=== PATIENT | female | born 1935 | race Two or more races ===

== ENCOUNTER 2023-11-06 18:40 | Inpatient (IN) | payer MEDICARE, OTHER ==
[~2023-11-06] VITALS: Ht 152.4 cm; Wt 59.0 kg
[2023-11-06 20:20] VITALS: BP 115/95; TEMP 97.5; O2SAT 99
[2023-11-06] MEDS ORDERED: APIX5TAB PO (21:10)
[2023-11-06] MEDS ORDERED: PHEN100C4 PO (21:10)
[2023-11-06] MEDS ORDERED: ZONI100C31 PO (21:10)
[2023-11-06] MEDS ORDERED: MAG HYDROX/AL HYDROX/SIMETH 30 ML UDC PO PRN (22:00)
[2023-11-06] MEDS ORDERED: Z GUARD REMEDY 4 OZ OINT TP PRN (22:00)
[2023-11-06] MEDS ORDERED: ONDANSETRON HCL/PF 4 MG/2 ML VIAL IVP PRN (22:00)
[2023-11-06] MEDS ORDERED: ACETAMINOPHEN 325 MG TABLET PO PRN (22:00)
[2023-11-06] MEDS ORDERED: MAGNESIUM HYDROXIDE 30 ML UDC PO PRN (22:00)
[2023-11-06] MEDS: IV NS 0.9% 1,000 ML IV PRN (22:08)
[2023-11-07] VITALS (7 sets, daily range): BP systolic 94–127; BP diastolic 70–92; TEMP 97.5–98.8; O2SAT 96–98
[2023-11-07 07:00] LABS: BASOPHILS % (AUTO) 0.7 % (0.0-2.0); EOSINOPHILS # (AUTO) 0.1 K/uL (0.0-0.7); EOSINOPHILS % (AUTO) 2.9 % (0.0-6.0); HEMATOCRIT 43 % (33-45); HEMOGLOBIN 14.2 g/dL (11.5-14.8); LYMPHOCYTES # (AUTO) 1.5 K/uL (0.8-4.8); LYMPHOCYTES % (AUTO) 34.4 % (20.0-44.0); MEAN CORPUSCULAR HEMOGLOBIN 31 PG (26.0-33.0); MEAN CORPUSCULAR HGB CONC 33 g/dl (31.0-36.0); MEAN CORPUSCULAR VOLUME 93 fL (82-100); MONOCYTES # (AUTO) 0.4 K/uL (0.1-1.30); MONOCYTES % (AUTO) 8.5 % (2.0-12.0); NEUTROPHILS # (AUTO) 2.4 K/uL (1.8-8.9); NEUTROPHILS % (AUTO) 53.5 % (43.0-81.0); PLATELET COUNT (AUTO) 196 K/uL (150-450); RED CELL DISTRIBUTION WIDTH 13.1 % (11.5-15.0); WHITE BLOOD COUNT (AUTO) 4.5 K/uL (4.3-11.0)
[2023-11-07 07:02] LABS: CALCIUM, SERUM 7.9 mg/dL (8.5-10.1); CREATININE 0.6 mg/dL (0.6-1.3); PHOSPHORUS 2.3 mg/dL (2.5-4.9); POTASSIUM 3.9 mmol/L (3.5-5.1)
[2023-11-07] MEDS ORDERED: DILTIAZEM HCL 25 MG IV IV PRN (07:30)
[2023-11-07 07:49] LABS: THYROID STIMULATING HORMONE 3.599 uIU/mL (0.358-3.74)
[2023-11-07] MEDS: PHENYTOIN EXTENDED RELEASE 100 MG CAPSULE PO SCH (08:35)
[2023-11-07] MEDS: ZONISAMIDE 100 MG CAPSULE PO SCH (08:35)
[2023-11-07] MEDS: APIXABAN 5 MG TABLET PO SCH (08:36)
[2023-11-07] MEDS: DIGOXIN INJ 0.5 MG/2 ML AMPUL IV ONE ×3 (10:58→12:57)
[2023-11-07] MEDS: NEUTRA PHOS 1 POWD.PACKET PO ONE (16:36)
[2023-11-08 01:03] VITALS: BP 117/79; TEMP 98.4; O2SAT 98
[2023-11-08 04:31] VITALS: BP 116/53; TEMP 98.4; O2SAT 98
[2023-11-08 06:55] LABS: BASOPHILS % (AUTO) 0.4 % (0.0-2.0); EOSINOPHILS # (AUTO) 0.2 K/uL (0.0-0.7); HEMATOCRIT 38 % (33-45); HEMOGLOBIN 12.8 g/dL (11.5-14.8); LYMPHOCYTES # (AUTO) 1.7 K/uL (0.8-4.8); LYMPHOCYTES % (AUTO) 33.2 % (20.0-44.0); MEAN CORPUSCULAR HEMOGLOBIN 31 PG (26.0-33.0); MEAN CORPUSCULAR HGB CONC 34 g/dl (31.0-36.0); MEAN CORPUSCULAR VOLUME 94 fL (82-100); MONOCYTES # (AUTO) 0.5 K/uL (0.1-1.30); MONOCYTES % (AUTO) 8.9 % (2.0-12.0); NEUTROPHILS # (AUTO) 2.7 K/uL (1.8-8.9); NEUTROPHILS % (AUTO) 53.5 % (43.0-81.0); PLATELET COUNT (AUTO) 166 K/uL (150-450); RED BLOOD CELL COUNT(AUTO) 4.07 MIL/uL (4.0-5.2); RED CELL DISTRIBUTION WIDTH 13.2 % (11.5-15.0); WHITE BLOOD COUNT (AUTO) 5.1 K/uL (4.3-11.0)
[2023-11-08 07:08] LABS: ALANINE AMINOTRANSFERASE 15 U/L (12-78); ALBUMIN 2.6 g/dL (3.4-5.0); ALKALINE PHOSPHATASE 241 U/L (46-116); ASPARTATE AMINOTRANSFERASE 21 U/L (15-37); BILIRUBIN,TOTAL 0.4 mg/dL (0.2-1.0); CALCIUM, SERUM 7.8 mg/dL (8.5-10.1); CARBON DIOXIDE 19 mmol/L (21-32); CHLORIDE 114 mmol/L (98-107); CREATININE 0.5 mg/dL (0.6-1.3); GLUCOSE 91 mg/dL (74-106); MAGNESIUM 1.8 mg/dL (1.8-2.4); PHOSPHORUS 2.5 mg/dL (2.5-4.9); POTASSIUM 3.7 mmol/L (3.5-5.1); SODIUM SERUM 142 mmol/L (136-145); TOTAL PROTEIN, SERUM 5.3 g/dL (6.4-8.2); UREA NITROGEN, BLOOD 10 mg/dL (7-18)
[2023-11-08 08:57] VITALS: BP 122/65; TEMP 98.2; O2SAT 97
[2023-11-08 11:52] VITALS: BP 128/78; TEMP 98.9
[2023-11-08] MEDS: DIGOXIN 0.125 MG TABLET PO SCH (13:00)
[2023-11-08] MEDS ORDERED: IOHEXOL-350 100 ML VIAL IV ONE ×2 (16:36→16:55)
[2023-11-08] MEDS ORDERED: IV NS 0.9% 250 ML IV ONE ×2 (16:37→16:56)
[2023-11-08 17:05] VITALS: BP_SYST 110; BP_SYST 125; BP_DIAS 58; BP_DIAS 72; TEMP 97.9; TEMP 98; O2SAT 100; O2SAT 96
[2023-11-08 20:00] VITALS: BP 135/73; TEMP 98.6; O2SAT 99
[2023-11-09] VITALS: BP 132/72; TEMP 97.9; O2SAT 99
[2023-11-09 04:00] VITALS: BP 127/61; TEMP 97.8; O2SAT 99
[2023-11-09 08:35] VITALS: BP 127/69; TEMP 98.2; O2SAT 99
[2023-11-09] MEDS ORDERED: DIGO125T PO (10:31)
[2023-11-09 12:25] VITALS: BP 122/69; TEMP 98.1; O2SAT 98
[2023-11-09 16:26] VITALS: BP 131/74; TEMP 98.1; O2SAT 96
== END 2023-11-09 16:40 | disposition home health service (06) | DRG 641 ==
LOC: MED 20:05 → TELE 21:53
PROVIDERS: ADMIT Internal Medicine; ATTEND Internal Medicine
DX: E86.0 Dehydration (principal); E44.0 Moderate protein-calorie malnutrition; G40.909 Epilepsy, unspecified, not intractable, without status epilepticus; I48.91 Unspecified atrial fibrillation; E88.09 Other disorders of plasma-protein metabolism, not elsewhere classified; D34 Benign neoplasm of thyroid gland; E34.9 Endocrine disorder, unspecified; G93.9 Disorder of brain, unspecified; Z86.61 Personal history of infections of the central nervous system; I67.1 Cerebral aneurysm, nonruptured
CPT/HCPCS: 36415; 70496-TC; 70498-TC; 70551-TC; 76536-TC; 80048-TC; 80053-TC; 80185-TC; 83735-TC; 84100-TC; 84439-TC; 84443-TC; 85025-TC; 93307-TC; 97110-TC; 97116-TC; 97530-TC; A4223; G0378; J1160; J3490; J7030; J7050; Q9967